=== PATIENT | female | born 1955 | race Caucasian/White ===

== ENCOUNTER 2018-10-23 12:59 | Day surgery (SDC) | payer OTHER ==
[~2018-10-23] VITALS: Ht 157.5 cm; Wt 56.1 kg
[2018-10-23 14:16] VITALS: Ht 157.5 cm; Wt 56.1 kg
[2018-10-23] MEDS ORDERED: VITAMINS (14:30)
[2018-10-23 14:45] VITALS: BP 146/68; PULSE 58; RESP 18
--- NOTE | 2018-10-23 15:04 | HPN ---
Date/Time of Note Date/Time of Note DATE: 10/23/18 TIME: 15:04 Interval H&P Admission Note Pt. seen H&P reviewed: No system changes KATIANA WHALEY Oct 23, 2018 15:04
[2018-10-23] MEDS ORDERED: FENTAnyl 50 MCG/ML VIAL ONE (15:29)
[2018-10-23] MEDS ORDERED: MIDAZOLAM 1 MG/ML 2 ML INJ ONE ×2 (15:30)
[2018-10-23 15:52] VITALS: BP 131/66; PULSE 58; RESP 12
== END 2018-10-23 16:35 | disposition home or self-care (01) ==
LOC: GIL 12:59
PROVIDERS: ATTEND Internal Medicine Gastroenterology
DX: D12.4 Benign neoplasm of descending colon (principal); K64.8 Other hemorrhoids
CPT/HCPCS: 45380; J2250; J3010; Z7610; 88305